=== PATIENT | female | born 2005 | race Caucasian/White ===

== ENCOUNTER 2025-05-30 12:13 | Emergency (ER) | payer SELFPAY ==
[2025-05-30 12:19] VITALS: BP 105/62; PULSE 73; TEMP 37.5; O2SAT 100; BMI 21.5
[2025-05-30 12:24] VITALS: O2SAT 98
--- NOTE | 2025-05-30 22:35 | ED_ITS ---
HPI HPI - General Adult General Chief complaint: Shortness of Breath/Dyspnea Stated complaint: SHORTNESS OF BREATH Time Seen by Provider: 05/30/25 13:28 Source: patient Mode of arrival: walk-in Limitations: no limitations History of Present Illness HPI narrative: Patient is a 19-year-old female who is presenting to the ER with chief complaint of shortness of breath, myalgia, arthralgia, flulike symptoms that started last night. Patient also admits to having underlying anxiety and worrying about dying patient stated she had some myalgia and arthralgia last evening along with some shortness of breath. Patient has minimal headache, mild sore throat, minimal nausea. Patient is currently on her menses, not worried about . Sisters at bedside. Today patient does not have much shortness of breath, however patient admits to underlying anxiety and wants to make sure that she is okay, and that she will not patient not suicidal or homicidal, patient looks well, patient laughs when she makes the comment about dying, but wants to make sure that there is nothing acutely wrong. No chest pain or tightness. No abdominal pain vomiting diarrhea, no rash, no other acute complaints. Unless otherwise stated in this report or unable to obtain because of the patient's clinical or mental status as evidenced by medical record, the patient's positive and negative responses for review of systems for constitutional, eyes, ENT, cardiovascular, respiratory, gastrointestinal, neurological, , musculoskeletal, and integument systems and related systems to the presenting problem are either stated in the history of present illness or were not pertinent or were negative for the symptoms and/or complaints related to the presenting medical problem. Nurses note and vital signs reviewed and patient is not hypoxic. General: The patient appears well and in no apparent distress. Patient is resting comfortably on cart. Patient is not toxic, lethargic, or listless Skin: Warm, dry, no pallor noted. There is no rash noted. No petechiae, purpura. Head: Normocephalic, atraumatic Eye: Normal conjunctiva, no drainage, EOMI. PERRL Ears, Nose, Mouth, and Throat: oral mucosa is moist. Nares patent. Mouth without vesicles. Cardiovascular: Regular Rate and Rhythm, no murmur, gallop, rub Respiratory: Patient is in no distress, no accessory muscle use, lungs are clear to auscultation, no wheezing, rales or rhonchi Back: non-tender, no CVA tenderness bilaterally to percussion. No CT LS midline pain GI: no tenderness to palpation, no masses appreciated. No rebound, guarding, or rigidity noted. No distention Musculoskeletal: Patient has full range of motion of all of the extremities, no motor, sensory, or focal neurological deficits Neurological: A&O x4, normal speech Psychiatric: Cooperative Related Data Allergies Allergy/AdvReac Type Severity Reaction Status Date / Time sertraline (From Zoloft) Allergy Severe Swelling Verified 05/30/25 12:19 of Lip/Tongue/Throat PFSH PFSH Social History Little interest or pleasure in doing things: not at all Feeling down, depressed, or hopeless: not at all Exam Constitutional Vital Signs, click to edit/add: Last Vital Signs Temp 99.5 F 05/30/25 12:19 Pulse 73 05/30/25 12:19 Resp 14 05/30/25 12:19 BP 105/62 05/30/25 12:19 Pulse Ox 98 05/30/25 12:24 O2 Del Method Room Air 05/30/25 12:24 Course Vital Signs Vital signs: Vital Signs Temperature 99.5 F 05/30/25 12:19 Pulse Rate 73 05/30/25 12:19 Respiratory Rate 14 05/30/25 12:19 Blood Pressure 105/62 05/30/25 12:19 Pulse Oximetry 100 05/30/25 12:19 Oxygen Delivery Method Room Air 05/30/25 12:19 Temperature 99.5 F 05/30/25 12:19 Pulse Rate 73 05/30/25 12:19 Respiratory Rate 14 05/30/25 12:19 Blood Pressure 105/62 05/30/25 12:19 Pulse Oximetry 98 05/30/25 12:24 Oxygen Delivery Method Room Air 05/30/25 12:24 Medical Decision Making MDM Narrative Medical decision making narrative: No acutePatient has a completely normal exam. Education on treating flulike symptoms was discussed at bedside and on discharge paperwork. Patient will follow-up with PCP. Indication for any orders. Patient agrees. No questions at discharge. Discharge Plan Discharge Chief Complaint: Shortness of Breath/Dyspnea Clinical Impression: Dyspnea, Situational anxiety, Flu-like symptoms Patient Disposition: Home, Self-Care Time of Disposition Decision: 13:40 Condition: Fair Print Language: Indonesian Instructions: Dyspnea (ED), Musculoskeletal Pain (ED), Cold Symptoms (ED), Anxiety (ED) Additional Instructions: Use DayQuil, NyQuil, and Flonase for the next 7 to 10 days to help manage symptoms. Use Mucinex DM as needed as well. Using Vitamin C, Vitamin D3, and Zinc will help fight infection as well. Alternate Tylenol and either Motrin, Advil, or ibuprofen every 4 hours to help with fever, body aches or joint pain Increase fluids: Gatorade, Powerade, or water Call today to make an appointment to follow-up with your PCP in the next 2 to 3 days for reevaluation. Discharge Date/Time: 05/30/25 13:50
== END 2025-05-30 13:50 | disposition home or self-care (01) ==
PROVIDERS: Emergency Provider Emergency Medicine
DX: R06.00 Dyspnea, unspecified (principal); F41.8 Other specified anxiety disorders; R68.89 Other general symptoms and signs
CPT/HCPCS: 99281